=== PATIENT | male | born 1995 | race Two or more races ===

== ENCOUNTER 2016-10-23 11:33 | Emergency (ER) | payer SELFPAY ==
[~2016-10-23] VITALS: Ht 175.3 cm; Wt 59.0 kg
[2016-10-23 11:54] VITALS: BP 115/71
== END 2016-10-23 12:33 | disposition home or self-care (01) ==
LOC: ER 11:33
DX: S60.132A Contusion of left middle finger with damage to nail, initial encounter (principal); W23.0XXA Caught, crushed, jammed, or pinched between moving objects, initial encounter; Y93.89 Activity, other specified; Y99.8 Other external cause status; Y92.89 Other specified places as the place of occurrence of the external cause
CPT/HCPCS: 11740; 73140